=== PATIENT | male | born 1950 | race Caucasian/White ===

== ENCOUNTER 2020-02-08 17:40 | Emergency (ER) | payer MEDICARE ==
[~2020-02-08] VITALS: Ht 182.9 cm; Wt 115.0 kg
[2020-02-08 17:48] VITALS: BP 142/68
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
--- NOTE | 2020-02-08 18:17 | NUR ---
PT TAKEN TO CT IN STABLE CONDITION.
--- NOTE | 2020-02-08 18:42 | NUR ---
PT RESTING ON GURNEY. NADN. CHANEY.
== END 2020-02-08 19:01 | disposition home or self-care (01) ==
LOC: ED 18:45
DX: S00.01XA Abrasion of scalp, initial encounter (principal); S00.81XA Abrasion of other part of head, initial encounter; S80.212A Abrasion, left knee, initial encounter; S09.90XA Unspecified injury of head, initial encounter; E11.9 Type 2 diabetes mellitus without complications; Y04.8XXA Assault by other bodily force, initial encounter; Y93.89 Activity, other specified; Y92.410 Unspecified street and highway as the place of occurrence of the external cause; Y99.8 Other external cause status
CPT/HCPCS: 70450; 99284